=== PATIENT | male | born 1955 | race Caucasian/White ===

== ENCOUNTER → 2017-03-30 | Outpatient (CLI) | payer SELFPAY ==
[~2017-03-30] MED LIST: ASPIRIN325 M2 PO; GLUCOSAMINE500 M1 PO; LISINOPRIL10 MG PO; MULTIVITAMIN1 CTB PO
== END | disposition home or self-care (01) ==
LOC: RESCLI 04:13
DX: I10 Essential (primary) hypertension (principal); E66.9 Obesity, unspecified; E78.5 Hyperlipidemia, unspecified; K57.30 Diverticulosis of large intestine without perforation or abscess without bleeding; F41.9 Anxiety disorder, unspecified; Z86.59 Personal history of other mental and behavioral disorders; Z87.891 Personal history of nicotine dependence; Z78.9 Other specified health status